=== PATIENT | female | born 1945 | race Caucasian/White ===

== ENCOUNTER 2016-07-12 20:18 | Inpatient (IN) ==
[2016-07-12] MEDS ORDERED: *HR* Morphine 2 MG/ML SYRINGE IVP ONE (22:42)
[2016-07-12] MEDS ORDERED: Nitroglycerin 1 INCH/GM PACKET TP ONE (22:42)
[2016-07-13] MEDS ORDERED: Ondansetron ODT 4 MG TAB.RAPDIS SL PRN (00:34)
[2016-07-13] MEDS ORDERED: Naloxone 0.4 MG/ML INJ IVP PRN (00:34)
[2016-07-13] MEDS ORDERED: *HR* Heparin 5,000 UNIT/ML VIAL IVP PRN ×2 (01:18)
[2016-07-13] MEDS ORDERED: *HR* Heparin 5,000 UNIT/ML VIAL IVP ONE (01:18)
[2016-07-13] MEDS ORDERED: *HR* Morphine 2 MG/ML SYRINGE IVP PRN (01:20)
[2016-07-13] MEDS ORDERED: Acetaminophen 325 MG TABLET PO PRN (01:20)
[2016-07-13] MEDS ORDERED: Nitroglycerin 0.4 MG TAB.SUBL SL PRN (01:20)
[2016-07-13] MEDS ORDERED: Heparin 25,000 UNIT/500 ML D5W 25,000 UNIT/500 ML MLS IVC SCH (01:30)
[2016-07-13 01:33] LABS: ABG Base Excess -0.5 mEq/L (-2.0 to 3.0); ABG HCO3 24.9 mEQ/L (21-27); ABG Oxygen Saturation 99 % (95-98); ABG PCO2 43 mmHg (35-45); ABG PH 7.37 pH Units (7.32-7.45); ABG PO2 141 mmHg (85-104); ABG TCO2 26.2 mEq/L (20-26); Blood Gas FiO2 36 %; Blood Gas Liter Flow 4 L/MIN
[2016-07-13 02:06] LABS: Hemoglobin 12.4 g/dL (11.5-15.4); Mean Corpuscular Hemoglobin 26.1 pg (28.0-33.3); Mean Platelet Volume 10.3 fL (9.4-12.4); Platelet Count 275 K/mcL (140-400); Red Blood Count 4.76 M/mcL (3.82-4.97); Red Cell Distribution Width 14.9 % (11.5-14.5)
[2016-07-13 02:11] LABS: Activated Partial Thrombo Time 25.1 Seconds (26.0-36.0)
[2016-07-13] MEDS ORDERED: Dextrose Gel 15 GM PO PRN ×2 (04:00)
[2016-07-13] MEDS ORDERED: *HR* Dextrose 50 % in Water (Syg) 50 ML SYRINGE IVP PRN (04:00)
[2016-07-13] MEDS ORDERED: D5% in Water 1,000 ML IV PRN ×2 (04:00→12:31)
--- NOTE | 2016-07-13 04:20 | Internal Med History&Physical ---
<Bonita Reaves - Last Filed: 07/13/16 04:49> Date of Encounter: 07/13/16 Time of Encounter: 04:20 Assessment and Plan (1) Chest pain Current visit: No Status: Acute Patient with chest pain and troponins elevated to 0.22. EKG shows normal sinus with no acute ST segment elevation or T wave inversion. Concern for possible NSTEMI. Will trend troponins and start a heparin drip. Patient may require further evaluation from cardiology for possible cath. As it has been 2 years since previous ECHO, will get another. 1. Trend troponins 2. Start heparin drip 3. Check BNP and lipid cascade 4. Cardiac monitoring 5. ECHO 6. Start statin, B-willie, and aspirin 7. Consult to cardiology Qualifiers: Chest pain type: unspecified Qualified Code(s): R07.9 - Chest pain, unspecified (2) COPD (chronic obstructive pulmonary disease) Current visit: No Status: Acute Patient with history of COPD on albuterol and prednisone. She reports shortness of breathe with wheezing on exam. This does not appear to be an acute exacerbation. However, because patient is so sleepy, will get an ABG 1. ABG 2. Continuous O2 monitor 3. Supplemental O2 as needed 4. Continue prednisone 5. Continue albuterol Qualifiers: COPD type: unspecified COPD Qualified Code(s): J44.9 - Chronic obstructive pulmonary disease, unspecified (3) CKD (chronic kidney disease) stage 3, GFR 30-59 ml/min Current visit: No Status: Chronic Patient with GFR of 50. Creatinine at 1.08. Will continue to monitor and avoid nephrotoxic drugs. (4) DM type 2 (diabetes mellitus, type 2) Current visit: No Status: Chronic Patient with T2DM. Glucose was 196 prior to transfer. She takes lispro with meals. As patient is NPO, will do Q6 hour accuchecks with a low sliding scale. 1. Q6 hour accuchecks 2. Low intensity sliding scale. Qualifiers: Diabetes mellitus complication status: with kidney complications Diabetes mellitus complication detail: with chronic kidney disease Diabetes mellitus care home insulin use: without emergency room specialist use Chronic kidney disease stage: stage 3 (moderate) Qualified Code(s): E11.22 - Type 2 diabetes mellitus with diabetic chronic kidney disease; N18.3 - Chronic kidney disease, stage 3 ( moderate) (5) Diastolic heart failure Current visit: No Status: Chronic Patient with history of diastolic heart failure on digoxin and lasix. Will get a new ECHO at this time. 1. Check a digoxin level 2. Check an BNP 3. Continue digoxin and lasix 4. Monitor I/O 5. Daily weights. Qualifiers: Heart failure chronicity: chronic Qualified Code(s): I50.32 - Chronic diastolic (congestive) heart failure (6) DVT prophylaxis Current visit: Yes Status: Acute Patient on heparin drip. Internal Medicine - H&P: HPI Chief complaint: Chest pain with elevated troponin Admitted From: Hospital to Hospital Transfer Plans for Post Hospital Care: Home History of present illness: Ms. Carrasco is a 70 year old female [facility]salio [facility] including arthritis, asthma, COPD, CVA, diabetes, GERD, HLD, and HTN who was transferred from [place] ED with chest pain and elevated troponins. On review of chart, patient has had many cardiac evaluations. She has a baseline minimally elevated troponin at 0.01. Patient presented to [place] with left chest pain radiating down her left arm with associated SOB, cough/congestion and wheezing. Per notes, this is a common complaint for her. However troponin was found to be elevated to 0.22 as such patient was transferred. On my exam, patient was extremely sleepy and had to be aroused multiple times during our conversation, as such history was difficult to obtain. She reports episodes of left sided chest pain radiating to her left arm with associated SOB. She says this has resolved and she currently denies any pain. She does reports some shortness of breath but states that is baseline for her and that she wears O2 at home. Patients is afebrile, HR and RR with normal limit. Blood pressure ranges 105- 115/40-60s. EKG showed normal sinus rhythm with no ST segment elevation or T wave inversion. On exam, patient is very sleepy but when aroused answers questions appropriately. Heart is regular rate and rhythm. Lungs with BL wheezing and decreased air movement. Abdomen is soft, non-tender. No pedal edema noted. On chart review, patient recently wore a halter monitor. She had an ECHO back in 07/2014 that showed an EF of 35-70% with mild AR. She has been seen by Dr. Sahu in the past. Past Med Surg Social Fam HX - Past Medical History Medical history: arthritis, asthma, cardiomyopathy, COPD, CVA, diabetes, GERD, hyperlipidemia, hypertension, myocardial infarction, osteoporosis, peripheral artery disease Psychiatric history: anxiety, depression, panic disorder - Past Surgical History Surgical History: hysterectomy - Social History Smoking Status: Current every day smoker Smokeless Tobacco Status: No Alcohol use: none Drug use: none - Family History Father Hx Family Cardiac Disorders: Yes (Heart attack and stroke) Hx Family Endocrine Disorder: Yes (Diabetes) Mother Family Member Ethnicity: Non- Living Status: Hx Family Cardiac Disorders: Yes Hx Family Respiratory Disorders: Yes Hx Family Cancer: Yes Hx Family GI Disorders: Yes Internal Medicine - H&P: Meds Albuterol Neb [Proventil Neb] 2.5 mg IH Q4HR PRN #30 vial.neb 02/24/16 [Rx] Albuterol Sulfate [Albuterol Inhaler] 2 puff IH Q6HR PRN #1 hfa.aer.ad 02/24/16 [Rx] Aspirin 81 mg PO DAILY 03/12/16 [History] Digoxin [Lanoxin] 0.125 mg PO DAILY 03/12/16 [History] Furosemide [Lasix] 20 mg PO DAILY 03/12/16 [History] Gabapentin [Neurontin] 600 mg PO TID 03/12/16 [History] Insulin LISPRO [HumaLOG] 4 units SQ TIDAC 03/12/16 [History] Magnesium Oxide [Magnesium] 400 mg PO DAILY 03/12/16 [History] Ranolazine [Ranexa] 500 mg PO DAILY #7 tab.er.12h 04/30/16 [Rx] PredniSONE 10 mg PO DAILY #3 tablet 07/05/16 [Rx] Allergies Penicillins Allergy (Verified 04/26/16 17:55) Hives lorazepam [From Ativan] Adverse Reaction (Verified 04/26/16 17:55) Hives ROS unobtainable: due to mental status (Patient was very sleepy and didn't want to answer questions) All Systems PM: A 10-system review of systems was performed and is negative for pertinent findings except as documented above in the HPI. - Constitutional Constitutional: no chills, no fever(s) - EENT Eyes: no change in vision - Cardiovascular Cardiovascular ROS IM: chest pain, dyspnea, lightheadedness, no palpitations, no syncope - Respiratory Respiratory: dyspnea, wheezing - Gastrointestinal Gastrointestinal: no abdominal pain - Constitutional Vitals: Temp Pulse Resp BP Pulse Ox 97.9 F 75 20 113/67 92 L 07/12/16 23:59 07/12/16 23:59 07/12/16 23:59 07/12/16 23:59 07/12/16 23:59 General appearance: Present: A&O X 3 Exam: sleepy but when she is awake answers questions appropriately - Head Head exam: Present: atraumatic, normal inspection, normocephalic - Eye Eye exam: Present: normal appearance - ENT ENT exam: Present: mucous membranes moist, normal exam - Respiratory Respiratory exam: Present: decreased breath sounds, prolonged expiratory phase, wheezes - Cardiovascular Cardiovascular exam: Present: RRR - GI/Abdominal GI/Abdominal exam: Present: soft. Absent: tenderness - Extremities Exam Extremities exam: Present: normal inspection. Absent: pedal edema - Neurological Exam Neurological exam: Present: oriented X3 Internal Med - H&P Results - Labs CBC & Chem 7: 07/13/16 01:30 Labs: Short CBC 07/13/16 Range/Units 01:30 WBC 17.3 H (4.3-11.1) K/mcL Hgb 12.4 (11.5-15.4) g/dL Hct 40.0 (35.3-44.9) % Plt Count 275 (140-400) K/mcL Cardiac Enzymes 07/13/16 Range/Units 01:30 Troponin I 0.01 (0-0.03) ng/mL - ABG Interpretation ABG results: 07/13/16 01:23 ABG pH 7.37 ABG pCO2 43 ABG pO2 141 H ABG HCO3 24.9 ABG Total CO2 26.2 H ABG O2 Saturation 99 H ABG Base Excess -0.5 <Sherwin Marc - Last Filed: 07/13/16 06:06> Date of Encounter: 07/13/16 Internal Medicine - H&P: HPI History of present illness: Ms. Carrasco is a 70 year old female All Systems PM: A 10-system review of systems was performed and is negative for pertinent findings except as documented above in the HPI. - Constitutional Vitals: Temp Pulse Resp BP Pulse Ox 97.9 F 75 20 113/67 92 L 07/12/16 23:59 07/12/16 23:59 07/12/16 23:59 07/12/16 23:59 07/12/16 23:59 Internal Med - H&P Results - Labs CBC & Chem 7: 07/13/16 01:30 Labs: Short CBC 07/13/16 Range/Units 01:30 WBC 17.3 H (4.3-11.1) K/mcL Hgb 12.4 (11.5-15.4) g/dL Hct 40.0 (35.3-44.9) % Plt Count 275 (140-400) K/mcL Cardiac Enzymes 07/13/16 Range/Units 01:30 Troponin I 0.01 (0-0.03) ng/mL - ABG Interpretation ABG results: 07/13/16 01:23 ABG pH 7.37 ABG pCO2 43 ABG pO2 141 H ABG HCO3 24.9 ABG Total CO2 26.2 H ABG O2 Saturation 99 H ABG Base Excess -0.5 - Attending Attestation I examined this patient and my medical decision-making was reviewed with the Resident Physician. I agree with the documented findings, disposition and treatment plan as described except to the extent set forth below. Patient is currently chest pain-free, she appears in no acute distress. Heart is regular S1-S2. EKG was personally reviewed and shows normal sinus rhythm, normal rate, no ST elevation. Patient has a non-ST elevation PR. We will start her on heparin drip per protocol. Consult cardiology.
[2016-07-13] MEDS: Albuterol 2.5 MG/3 ML NEBULIZER IH SCH ×4 (04:40→15:57)
[2016-07-13] MEDS: Insulin LISPRO 300 UNITS/3 ML VIAL SQ SCH ×3 (06:27→17:07)
[2016-07-13] MEDS ORDERED: Aspirin 81 MG TAB.CHEW PO SCH (09:00)
[2016-07-13] MEDS ORDERED: Ranolazine 500 MG TAB.ER.12H PO SCH (09:00)
[2016-07-13] MEDS: Furosemide 20 MG TABLET PO SCH (09:11)
[2016-07-13] MEDS: Gabapentin 300 MG CAPSULE PO SCH ×3 (09:11→20:29)
[2016-07-13] MEDS: *HR* Digoxin 0.125 MG TABLET PO SCH (09:12)
[2016-07-13] MEDS: Aspirin 81 MG TAB.CHEW PO SCH (09:12)
--- NOTE | 2016-07-13 09:46 | Cardiology Consult Note ---
<Asia Mckeon - Last Filed: 07/13/16 09:49> Date of Encounter: 07/13/16 Time of Encounter: 09:00 Assessment and Plan (1) Elevated troponin Current Visit: Yes Status: Acute Troponin 0.22 at [place] ED, now negative; suspect demand ischemia in the setting of COPD exacerbation, WBC 17.3. Euvolemic upon exam, do not suspect volume overload. Chest pain is atypical. Recommend medical management, patient states she does not want any testing, and wants to go home. Continue asa, statin, and betablocker. Echocardiogram ordered. (2) COPD (chronic obstructive pulmonary disease) Current Visit: Yes Status: Chronic mgmt per primary service. Qualifiers: COPD type: unspecified COPD Qualified Code(s): J44.9 - Chronic obstructive pulmonary disease, unspecified Discussion w patient/family: The assessment and plan as outlined above was discussed with the patient and/or family members who expressed understanding and agreement. All questions were answered. Thank you for involving us in the care of your patient. Please call with any questions. History of Present Illness Consult date: 07/13/16 Requesting physician: Sherwin Marc Consult reason: Elevated troponin Chief complaint: Chest pain, shortness of breath History of present illness: Ms. Cararsco is a 70 year old female who presents from [place] ED for COPD Exacerbation, elevated troponin. Upon review, she has multiple admissions to [place] ED for shortness of breath and difficulty in breathing. Last admission to [facility], she left AMA. Please note she is a poor historian, on multiple accounts during exam she stated she was going to leave AMA. Per her report, she has not followed as outpatient with PCP in over 2 years. Has not taken prescribed medications for at least 6+ months. Reports 2+ ppd x50+ years. Per review of ED report--patient comes to the ED nearly every other day, typically with increased stress at home. She reports yesterday she developed worsening shortness of breath and chest pain , she then call the squad. Troponin was 0.22 at [place] ED, and was then sent to [facility] for further evaluation. She was started on a heparin gtt. Past Med Surg Social Fam HX - Past Medical History Source: old records reviewed, nursing notes reviewed Medical history: arthritis, asthma, COPD, CVA, diabetes, GERD, hyperlipidemia, hypertension, myocardial infarction, osteoporosis, peripheral artery disease Psychiatric history: anxiety, depression, panic disorder - Past Surgical History Surgical History: hysterectomy - Social History Smoking Status: Current every day smoker Smokeless Tobacco Status: No Alcohol use: none Drug use: none - Family History Father Hx Family Cardiac Disorders: Yes (Heart attack and stroke) Hx Family Endocrine Disorder: Yes (Diabetes) Mother Family Member Ethnicity: Non- Living Status: Hx Family Cardiac Disorders: Yes Hx Family Respiratory Disorders: Yes Hx Family Cancer: Yes Hx Family GI Disorders: Yes Medications and Allergies Albuterol Neb [Proventil Neb] 2.5 mg IH Q4HR PRN #30 vial.neb 02/24/16 [Rx] Albuterol Sulfate [Albuterol Inhaler] 2 puff IH Q6HR PRN #1 hfa.aer.ad 02/24/16 [Rx] Aspirin 81 mg PO DAILY 03/12/16 [History] Digoxin [Lanoxin] 0.125 mg PO DAILY 03/12/16 [History] Furosemide [Lasix] 20 mg PO DAILY 03/12/16 [History] Gabapentin [Neurontin] 600 mg PO TID 03/12/16 [History] Insulin LISPRO [HumaLOG] 4 units SQ TIDAC 03/12/16 [History] Magnesium Oxide [Magnesium] 400 mg PO DAILY 03/12/16 [History] Ranolazine [Ranexa] 500 mg PO DAILY #7 tab.er.12h 04/30/16 [Rx] PredniSONE 10 mg PO DAILY #3 tablet 07/05/16 [Rx] Allergies lorazepam [From Ativan] Allergy (Verified 07/13/16 09:25) Hives Penicillins Allergy (Verified 04/26/16 17:55) Hives All Systems Review: A 10-system review of systems was performed and is negative for pertinent findings except as documented above in the HPI. - Cardiovascular Cardiovascular: as per HPI Physical Examination Vital Signs, Last 4 Hours Temp Pulse Resp BP Pulse Ox 07/13/16 09:17 96 07/13/16 07:23 98.0 F 82 16 116/69 96 07/13/16 06:08 98 F 69 20 117/67 96 General: Conversant HEENT: Atraumatic, Normocephaly Cardiac: Reg Rate and Rhythm Lungs: Other (Few wheezes ) Neuro: Alert and responsive Abdomen: Soft Skin: No rashes noted on visualized skin Musculoskeletal: No Chest Wall Tenderness Extremities: No Edema, Normal Pulses Results 07/13/16 01:30 Lab Results 07/13/16 07/13/16 07/13/16 01:30 01:30 01:30 WBC 17.3 H Hgb 12.4 Hct 40.0 Plt Count 275 INR APTT Troponin I 0.01 B-Natriuretic Peptide 107 H 07/13/16 01:30 WBC Hgb Hct Plt Count INR 1.0 APTT 25.1 L Troponin I B-Natriuretic Peptide Active Medications Acetaminophen (Tylenol) 325 mg PO Q6HR PRN PRN Reason: Pain Stop: 01/12/17 01:21 Albuterol Sulfate (Proventil Neb) 2.5 mg IH [id number] BRIAN PRN Reason: Protocol Stop: 01/12/17 04:01 Last Admin: 07/13/16 04:40 Dose: Not Given Albuterol Sulfate (Albuterol Inhaler) 2 puff IH [id number] [facility] Stop: 01/12/17 04:01 Last Admin: 07/13/16 04:40 Dose: Not Given Aspirin (Aspirin) 81 mg PO DAILY [facility] Stop: 01/12/17 09:01 Last Admin: 07/13/16 09:12 Dose: 81 mg Dextrose/Water (Dextrose 50% (Syg)) 25 ml IVP AD PRN PRN Reason: Hypoglycemia Stop: 01/12/17 04:01 Digoxin (Lanoxin) 0.125 mg PO DAILY [facility] Stop: 01/12/17 09:01 Last Admin: 07/13/16 09:12 Dose: 0.125 mg Furosemide (Lasix) 20 mg PO DAILY BRIAN Stop: 01/12/17 09:01 Last Admin: 07/13/16 09:11 Dose: 20 mg Gabapentin (Neurontin) 600 mg PO TID [facility] Stop: 01/12/17 09:01 Last Admin: 07/13/16 09:11 Dose: 600 mg Heparin Sodium (Porcine) (Heparin) 3,700 unit 60 unit/kg (3700 unit) IVP Q6HR PRN PRN Reason: SEE COMMENTS Stop: 01/12/17 01:19 Heparin Sodium (Porcine) (Heparin) 1,900 unit 30 unit/kg (1900 unit) IVP Q6H PRN PRN Reason: SEE COMMENTS Stop: 01/12/17 01:19 Heparin Sodium/Dextrose (Heparin 25,000 Unit/500 Ml D5w) 25,000 unit in 500 mls @ 14.928 mls/hr IVC .Q24H BRIAN; 12 UNIT/KG/HR PRN Reason: Protocol Stop: 01/12/17 01:31 Last Admin: 07/13/16 02:31 Dose: 12 unit/kg/hr, 14.928 mls/hr Dextrose (Dextrose 5%) 1,000 mls @ 100 mls/hr IV CONT PRN PRN Reason: HYPOGLYCEMIA Stop: 01/12/17 04:01 Insulin Human Lispro (Humalog) 0 units SQ Q6HR BRIAN PRN Reason: Protocol Stop: 01/12/17 06:01 Last Admin: 07/13/16 06:27 Dose: 2 units Metoprolol Tartrate (Lopressor) 12.5 mg PO BID BRIAN Stop: 01/12/17 09:01 Last Admin: 07/13/16 09:11 Dose: 12.5 mg Morphine Sulfate (Morphine Sulfate) 2 mg IVP Q4HR PRN PRN Reason: Moderate Pain Stop: 01/12/17 01:21 Naloxone HCl (Narcan) 0.4 mg IVP Q2MIN PRN PRN Reason: Opioid Reversal Stop: 01/12/17 00:35 Nitroglycerin (Nitroglycerin) 0.4 mg SL Q5MIN PRN PRN Reason: Chest Pain Stop: 01/12/17 01:21 Ondansetron HCl (Zofran Odt) 4 mg SL Q8HR PRN PRN Reason: Nausea And Vomiting Stop: 01/12/17 00:35 Simvastatin (Zocor) 20 mg PO HS [facility] Stop: 01/12/17 21:01 - Imaging and Cardiology Other Results: 12 hour tele: avg HR=75, no significant event noted. - EKG Interpretation EKG results cardiology: personally reviewed Consult Discharge Plan - Plan Referrals: NO,PCP [Primary Care Provider] - <Shayla Sahu - Last Filed: 07/13/16 11:10> Date of Encounter: 07/13/16 Assessment and Plan Discussion w patient/family: The assessment and plan as outlined above was discussed with the patient and/or family members who expressed understanding and agreement. All questions were answered. Thank you for involving us in the care of your patient. Please call with any questions. History of Present Illness History of present illness: Ms. Carrasco is a 70 year old female All Systems Review: A 10-system review of systems was performed and is negative for pertinent findings except as documented above in the HPI. Physical Examination Vital Signs, Last 4 Hours Temp Pulse Resp BP Pulse Ox 07/13/16 09:17 96 07/13/16 07:23 98.0 F 82 16 116/69 96 Results 07/13/16 09:53 Lab Results 07/13/16 07/13/16 07/13/16 01:30 01:30 01:30 WBC 17.3 H Hgb 12.4 Hct 40.0 Plt Count 275 INR APTT Troponin I 0.01 B-Natriuretic Peptide 107 H 07/13/16 07/13/16 07/13/16 01:30 09:53 09:53 WBC 17.2 H Hgb 13.4 Hct 44.5 Plt Count 251 INR 1.0 APTT 25.1 L 147.0 H* D Troponin I B-Natriuretic Peptide 07/13/16 09:53 WBC Hgb Hct Plt Count INR APTT Troponin I 0.01 B-Natriuretic Peptide - Attending Attestation I examined this patient and my medical decision-making was reviewed with the COURTESY DRIVER/PA/Advanced Practice Nurse/Resident Physician. I agree with the documented findings, disposition and treatment plan. Ms. Carrasco presents with atypical chest pain, reproducible on palpation. Her troponin at [place] was mildly elevated but 2 troponins here have been negative. There are no concerning ECG changes. Her symptoms do not appear consistent with an acute coronary syndrome. She also adamantly declines invasive workup or other cardiac testing. I recommend continuing statin, antiplatelet agent and BB. Heparin can be stopped. Treatment for musculoskeletal pain per primary team. We will sign off. Please call with questions.
[2016-07-13 10:14] LABS: Basophils # 0.3 K/mcL (0.0-0.2); Basophils % 1.5 %; Eosinophils # 0.4 K/mcL (0.0-0.6); Eosinophils % 2.6 %; Hematocrit 44.5 % (35.3-44.9); Hemoglobin 13.4 g/dL (11.5-15.4); Immature Granulocytes % 1.2 % (0-4); Lymphocytes # 3.6 K/mcL (0.6-4.6); Lymphocytes % 20.9 %; Mean Corpuscular HGB Conc 30.1 g/dL (31.6-35.5); Mean Corpuscular Hemoglobin 26.2 pg (28.0-33.3); Mean Corpuscular Volume 86.9 fL (83.0-100.0); Mean Platelet Volume 11.2 fL (9.4-12.4); Monocytes # 1.4 K/mcL (0.0-1.3); Monocytes % 7.9 %; Neutrophils # 11.4 K/mcL (1.6-8.9); Platelet Count 251 K/mcL (140-400); Red Blood Count 5.12 M/mcL (3.82-4.97); Red Cell Distribution Width 15.5 % (11.5-14.5); Segmented Neutrophils % 65.9 %
--- NOTE | 2016-07-13 10:33 | Internal Med Progress Note ---
<Ji Jara - Last Filed: 07/13/16 10:30> Date of Encounter: 07/13/16 Time of Encounter: 10:31 - Assessment and plan (1) Chest pain Current Visit: No Status: Acute Assessment and plan: 07/13/16 Troponin early this morning = 0.01 Seen by cardiology, likely due to demand ischemia in setting of COPD Recommend medical management continue ASA, statin, beta willie Echocardiogram pending 07/13/16 (4:18 am) Patient with chest pain and troponins elevated to 0.22. EKG shows normal sinus with no acute ST segment elevation or T wave inversion. Concern for possible NSTEMI. Will trend troponins and start a heparin drip. Patient may require further evaluation from cardiology for possible cath. As it has been 2 years since previous ECHO, will get another. 1. Trend troponins 2. Start heparin drip 3. Check BNP and lipid cascade 4. Cardiac monitoring 5. ECHO 6. Start statin, B-willie, and aspirin 7. Consult to cardiology Qualifiers: Chest pain type: unspecified Qualified Code(s): R07.9 - Chest pain, unspecified (2) COPD (chronic obstructive pulmonary disease) Current Visit: No Status: Acute Assessment and plan: 07/13/16 Improving clinically Nasal cannula off during exam as morning and O2 sat = 96% Continue supplemental O2 when necessary Continue current medications WBC = 70.3. Patient is on prednisone at home, chart review reveals chronic leukocytosis 07/13/16 (4:18 am) Patient with history of COPD on albuterol and prednisone. She reports shortness of breathe with wheezing on exam. This does not appear to be an acute exacerbation. However, because patient is so sleepy, will get an ABG 1. ABG 2. Continuous O2 monitor 3. Supplemental O2 as needed 4. Continue prednisone 5. Continue albuterol Qualifiers: COPD type: unspecified COPD Qualified Code(s): J44.9 - Chronic obstructive pulmonary disease, unspecified (3) CKD (chronic kidney disease) stage 3, GFR 30-59 ml/min Current Visit: No Status: Chronic Assessment and plan: Serum creatinine last night = 1.08 with EGFR = 50 which are near patient's baseline Continue to monitor and avoid nephrotoxic agents (4) DM type 2 (diabetes mellitus, type 2) Current Visit: No Status: Chronic Assessment and plan: A1c (07/03/16) = 7.4% Continue every 6 hour Accu-Cheks Continue low intensity sliding scale Qualifiers: Diabetes mellitus complication status: with kidney complications Diabetes mellitus complication detail: with chronic kidney disease Diabetes mellitus penitentiary insulin use: without paper counter use Chronic kidney disease stage: stage 3 (moderate) Qualified Code(s): E11.22 - Type 2 diabetes mellitus with diabetic chronic kidney disease; N18.3 - Chronic kidney disease, stage 3 ( moderate) (5) Diastolic heart failure Current Visit: No Status: Chronic Assessment and plan: 07/13/16 Digoxin level ordered late this morning, pending Mild elevation of BNP Echo pending 07/13/16 (4:18 am) Patient with history of diastolic heart failure on digoxin and lasix. Will get a new ECHO at this time. 1. Check a digoxin level 2. Check an BNP 3. Continue digoxin and lasix 4. Monitor I/O 5. Daily weights. Qualifiers: Heart failure chronicity: chronic Qualified Code(s): I50.32 - Chronic diastolic (congestive) heart failure (6) DVT prophylaxis Current Visit: Yes Status: Acute - Subjective Interval history: Ms. Carrasco was seen and examined at bedside this morning. She was drowsy but arousable. He states she states her chest pain has resolved. She is currently having shortness of breath but states this is better than yesterday. She denies abdominal pain or other current complaints - Constitutional Vitals: Temp Pulse Resp BP Pulse Ox 98.0 F 82 16 116/69 96 07/13/16 07:23 07/13/16 07:23 07/13/16 07:23 07/13/16 07:23 07/13/16 09:17 General appearance: Present: A&O X 3 - Head Head exam: Present: atraumatic, normocephalic - Eye Eye exam: Present: PERRL, conjuntiva pink, sclera anicteric Pupils: Present: PERRL - Neck Neck exam general surgery: Present: supple, trachea midline. Absent: lymphadenopathy - Respiratory Respiratory exam: Present: decreased breath sounds, wheezes. Absent: accessory muscle use, rales, respiratory distress - Cardiovascular Cardiovascular exam: Present: RRR, +S1, +S2. Absent: diastolic murmur, gallop, rubs, systolic murmur - GI/Abdominal GI/Abdominal exam: Present: normal bowel sounds, soft, no peritoneal signs. Absent: distended, tenderness - Extremities Exam Extremities exam: Present: warm, radial pulses palpable and symetrical. Absent : calf tenderness, cyanotic, pedal edema - Neurological Exam Neurological exam: Present: oriented X3, no focal deficits. Absent: facial droop, speech deficit - Skin Skin exam: Present: dry, intact Internal Medicine: Result - Labs CBC & Chem 7: 07/13/16 09:53 Labs: Short CBC 07/13/16 07/13/16 Range/Units 01:30 09:53 WBC 17.3 H 17.2 H (4.3-11.1) K/mcL Hgb 12.4 13.4 (11.5-15.4) g/dL Hct 40.0 44.5 (35.3-44.9) % Plt Count 275 251 (140-400) K/mcL Neutrophils # 11.4 H (1.6-8.9) K/mcL Cardiac Enzymes 07/13/16 Range/Units 01:30 Troponin I 0.01 (0-0.03) ng/mL - ABG Interpretation ABG results: ABG ABG pH 7.37 pH Units (7.32-7.45) 07/13/16 01:23 ABG pCO2 43 mmHg (35-45) 07/13/16 01:23 ABG pO2 141 mmHg (85-104) H 07/13/16 01:23 ABG O2 Saturation 99 % (95-98) H 07/13/16 01:23 PT/INR, D-dimer PT 11.0 Seconds (9.4-12.1) 07/13/16 01:30 - VTE Reasons for not Prescribing Prophylaxis: Not indicated-Anticoagulated or INR therapeutic Consult Discharge Plan - Plan Referrals: NO,PCP [Primary Care Provider] - <Kermit Flores H - Last Filed: 07/13/16 12:00> Date of Encounter: 07/13/16 - Constitutional Vitals: Temp Pulse Resp BP Pulse Ox 98.3 F 65 18 102/50 93 L 07/13/16 11:06 07/13/16 11:06 07/13/16 11:06 07/13/16 11:06 07/13/16 11:06 Internal Medicine: Result - Labs CBC & Chem 7: 07/13/16 09:53 Labs: Short CBC 07/13/16 07/13/16 Range/Units 01:30 09:53 WBC 17.3 H 17.2 H (4.3-11.1) K/mcL Hgb 12.4 13.4 (11.5-15.4) g/dL Hct 40.0 44.5 (35.3-44.9) % Plt Count 275 251 (140-400) K/mcL Neutrophils # 11.4 H (1.6-8.9) K/mcL Cardiac Enzymes 07/13/16 07/13/16 Range/Units 01:30 09:53 Troponin I 0.01 0.01 (0-0.03) ng/mL - ABG Interpretation ABG results: ABG ABG pH 7.37 pH Units (7.32-7.45) 07/13/16 01:23 ABG pCO2 43 mmHg (35-45) 07/13/16 01:23 ABG pO2 141 mmHg (85-104) H 07/13/16 01:23 ABG O2 Saturation 99 % (95-98) H 07/13/16 01:23 PT/INR, D-dimer PT 11.0 Seconds (9.4-12.1) 07/13/16 01:30 - Attending Attestation acute copd exacerbation 2ry to acute bronchitis viral vs bacterial start solumedrol and azithromycin duonebs -elevated troponins likely due to demand ischemia check resp viral panel I examined this patient and my medical decision-making was reviewed with the EQUIPMENT MAINTENANCE ENGINEER/PA/Advanced Practice Nurse/Resident Physician. I agree with the documented findings, disposition and treatment plan as described except to the extent set forth below.
[2016-07-13 11:05] LABS: Heparin anti-factor XA UFH 0.54 IU/mL (0.30-0.70)
[2016-07-13] MEDS: methylPREDNISolone 125 MG/2 ML VIAL IV SCH ×2 (12:50→17:07)
[2016-07-13] MEDS: Azithromycin 500 MG in D5% in Water 250 ML IVPB SCH (12:51)
[2016-07-13 12:58] LABS: Alanine Aminotransferase 7 Units/L (0-55); Albumin 3.1 g/dL (3.5-5.0); Alkaline Phosphatase 148 Units/L (38-126); Aspartate Amino Transferase 8 Units/L (5-34); BUN/Creatinine Ratio 10 (6-26); Bilirubin,Direct 0.2 mg/dL (0.0-0.5); Bilirubin,Indirect 0.3 mg/dL (0.0-1.2); Bilirubin,Total 0.5 mg/dL (0.2-1.2); Blood Urea Nitrogen 10 mg/dL (7-20); Calcium 9.3 mg/dL (8.6-10.8); Carbon Dioxide 21 mEq/L (19-29); Chloride 108 mEq/L (98-109); Chol/HDL Ratio 5.4 (0-4.9); Cholesterol 200 mg/dL (< 200); Glucose 150 mg/dL (70-99); HDL Cholesterol 37 mg/dL (40-59); LDL Cholesterol,Calculated 128 mg/dL (0-99); Magnesium 1.9 mg/dL (1.6-2.6); Osmolality,Calculated 288 (280-300); Phosphorous 3.8 mg/dL (2.3-4.7); Potassium 4.6 mEq/L (3.5-4.5); Sodium 138 mEq/L (136-145); Total Protein 6.1 g/dL (6.0-8.3); Triglycerides 176 mg/dL (< 150); eGFR For African Americans > 60 (> 60); eGFR For Non-African Americans 55 (> 60)
[2016-07-13 13:04] LABS: Digoxin 0.3 ng/mL (0.8-2.0)
[2016-07-13 14:16] LABS: Adenovirus Not Detected (Not Detect); Bordetella Pertussis Not Detected (Not Detect); Chlamydophila pneumoniae Not Detected (Not Detect); Coronavirus 229E Not Detected (Not Detect); Coronavirus HKU1 Not Detected (Not Detect); Coronavirus NL63 Not Detected (Not Detect); Coronavirus OC43 Not Detected (Not Detect); Human Metapneumovirus Not Detected (Not Detect); Human Rhinovirus/Enterovirus Not Detected (Not Detect); Influenza A Subtype 2009 H1 Not Detected (Not Detect); Influenza A Untypeable Not Detected (Not Detect); Influenza B Not Detected (Not Detect); Mycoplasma pneumoniae Not Detected (Not Detect); Parainfluenza Virus 1 Not Detected (Not Detect); Parainfluenza Virus 2 Not Detected (Not Detect); Parainfluenza Virus 3 Not Detected (Not Detect); Parainfluenza Virus 4 Not Detected (Not Detect); Respiratory Syncytial Virus Not Detected (Not Detect)
[2016-07-13] MEDS: Ipratropium/Albuterol Neb 3 ML IH SCH ×3 (15:34→23:02)
[2016-07-13] MEDS ORDERED: 0.9 % Sodium Chloride 500 ML IVC ONE (15:54)
[2016-07-13] MEDS ORDERED: 0.9 % Sodium Chloride 500 ML ONE (15:56)
[2016-07-13] MEDS ORDERED: 0.9 % Sodium Chloride 1,000 ML ONE (15:56)
[2016-07-13] MEDS: 0.9 % Sodium Chloride 1,000 ML IVC SCH (16:02)
[2016-07-13] MEDS: *HR* Heparin 5,000 UNIT/ML VIAL SQ SCH (18:24)
[2016-07-13] MEDS ORDERED: Insulin LISPRO 300 UNITS/3 ML VIAL SQ SCH (21:00)
[2016-07-14] MEDS: methylPREDNISolone 125 MG/2 ML VIAL IV SCH ×2 (00:25→08:28)
[2016-07-14] MEDS: 0.9 % Sodium Chloride 1,000 ML IVC SCH ×2 (00:25→08:27)
[2016-07-14] MEDS: Ipratropium/Albuterol Neb 3 ML IH SCH ×2 (03:55→10:47)
[2016-07-14 06:22] LABS: Basophils % 0.1 %; Hematocrit 39.6 % (35.3-44.9); Hemoglobin 12.3 g/dL (11.5-15.4); Immature Granulocytes % 1.5 % (0-4); Lymphocytes % 4.6 %; Mean Corpuscular HGB Conc 31.1 g/dL (31.6-35.5); Mean Corpuscular Hemoglobin 25.9 pg (28.0-33.3); Mean Corpuscular Volume 83.4 fL (83.0-100.0); Mean Platelet Volume 10.6 fL (9.4-12.4); Monocytes # 0.3 K/mcL (0.0-1.3); Monocytes % 1.6 %; Neutrophils # 19.1 K/mcL (1.6-8.9); Platelet Count 306 K/mcL (140-400); Red Blood Count 4.75 M/mcL (3.82-4.97); Segmented Neutrophils % 92.2 %
[2016-07-14 06:40] LABS: Calcium 9.4 mg/dL (8.6-10.8); Magnesium 1.8 mg/dL (1.6-2.6); Phosphorous 3.2 mg/dL (2.3-4.7); Potassium 4.5 mEq/L (3.5-4.5)
[2016-07-14] MEDS ORDERED: Ondansetron 4 MG/2 ML VIAL IVP PRN (06:50)
[2016-07-14] MEDS: Gabapentin 300 MG CAPSULE PO SCH ×2 (08:25→14:27)
[2016-07-14] MEDS: Aspirin 81 MG TAB.CHEW PO SCH (08:26)
[2016-07-14] MEDS: *HR* Digoxin 0.125 MG TABLET PO SCH (08:26)
[2016-07-14] MEDS: *HR* Heparin 5,000 UNIT/ML VIAL SQ SCH (08:27)
[2016-07-14] MEDS: Insulin LISPRO 300 UNITS/3 ML VIAL SQ SCH ×2 (08:27→11:42)
--- NOTE | 2016-07-14 11:17 | Electrocardiograph Report ---
[place] [address] Test Date: 2016-07-12 Pat Name: Meeta Carrasco Department: 112 Room: 2A Gender: F Platform Architect: : 1945 Requested By: Bonita Reaves Order Number: [id number] Reading MD: Dayday Leblanc DO Measurements Intervals [place] Rate: 69 P: 44 PA: 138 QRS: -8 QRSD: 78 T: 87 QT: 398 QTc: 417 Interpretive Statements SINUS RHYTHM MODERATE T-WAVE ABNORMALITY, CONSIDER ANTEROLATERAL ISCHEMIA Electronically Signed On 07-14-2016 11:16:07 EST by Dayday Leblanc DO
--- NOTE | 2016-07-14 11:19 | Electrocardiograph Report ---
[address] [place] [address] Test Date: 2016-07-13 Pat Name: Meeta Carrasco Department: 112 Room: 2A33 Gender: F Paper Cap Machine Operator: : 1945 Requested By: Kermit Flores Order Number: [id number] Reading MD: Dayday Leblanc DO Measurements Intervals [place] Rate: 74 P: 45 AK: 153 QRS: -13 QRSD: 75 T: 85 QT: 374 QTc: 402 Interpretive Statements SINUS RHYTHM MODERATE T-WAVE ABNORMALITY, CONSIDER ANTEROLATERAL ISCHEMIA Electronically Signed On 07-14-2016 11:17:46 EST by Dayday Leblanc DO
[2016-07-14 11:29] VITALS: BP 108/58
[2016-07-14] MEDS: Azithromycin 500 MG in D5% in Water 250 ML IVPB SCH (11:41)
--- NOTE | 2016-07-14 13:13 | Discharge Summary ---
Date of Encounter: 07/14/16 Time of Encounter: 13:13 - Discharge Diagnosis (1) Acute exacerbation of chronic obstructive airways disease Priority: Primary Status: Acute Comments: Chronic Respiratory Failure Secondary to Acute COPD Exacerbation Due To Acute Bronchitis Viral Versus Bacterial (2) Demand ischemia Priority: Secondary Status: Acute Comments: Elevated troponins likely secondary to demand ischemia (3) CKD (chronic kidney disease) stage 3, GFR 30-59 ml/min Priority: Secondary Status: Chronic Comments: CKD3 (4) DM type 2 (diabetes mellitus, type 2) Priority: Secondary Status: Chronic Qualifiers: Diabetes mellitus complication status: with kidney complications Diabetes mellitus complication detail: with chronic kidney disease Diabetes mellitus terminal gauger supervisor insulin use: without alf use Chronic kidney disease stage: stage 3 (moderate) Qualified Code(s): E11.22 - Type 2 diabetes mellitus with diabetic chronic kidney disease; N18.3 - Chronic kidney disease, stage 3 ( moderate) (5) Diastolic heart failure Priority: Secondary Status: Chronic Qualifiers: Heart failure chronicity: chronic Qualified Code(s): I50.32 - Chronic diastolic (congestive) heart failure (6) GERD (gastroesophageal reflux disease) Priority: Secondary Status: Chronic Qualifiers: Esophagitis presence: without esophagitis Qualified Code(s): K21.9 - Gastro -esophageal reflux disease without esophagitis - Discharge Medications Prescriptions: Azithromycin 250 mg PO DAILY #3 tablet Metoprolol [Lopressor] 12.5 mg PO BID 30 Days PredniSONE 10 mg PO DAILY 18 Days Simvastatin [Zocor] 20 mg PO HS #30 tablet Home Medications: Albuterol Neb [Proventil Neb] 2.5 mg IH Q4HR PRN #30 vial.neb 02/24/16 [Rx] Albuterol Sulfate [Albuterol Inhaler] 2 puff IH Q6HR PRN #1 hfa.aer.ad 02/24/16 [Rx] Aspirin 81 mg PO DAILY 03/12/16 [History] Digoxin [Lanoxin] 0.125 mg PO DAILY 03/12/16 [History] Furosemide [Lasix] 20 mg PO DAILY 03/12/16 [History] Gabapentin [Neurontin] 600 mg PO TID 03/12/16 [History] Insulin LISPRO [HumaLOG] 4 units SQ TIDAC 03/12/16 [History] Magnesium Oxide [Magnesium] 400 mg PO DAILY 03/12/16 [History] Ranolazine [Ranexa] 500 mg PO DAILY #7 tab.er.12h 04/30/16 [Rx] Azithromycin 250 mg PO DAILY #3 tablet 07/14/16 [Rx] Metoprolol [Lopressor] 12.5 mg PO BID 30 Days 07/14/16 [Rx] PredniSONE 10 mg PO DAILY 18 Days 07/14/16 [Rx] Simvastatin [Zocor] 20 mg PO HS #30 tablet 07/14/16 [Rx] Allergies/Adverse Reactions: Allergies lorazepam [From Ativan] Allergy (Verified 07/13/16 09:25) Hives Penicillins Allergy (Verified 04/26/16 17:55) Hives Procedures/tests Complete & Pending: Procedures Performed prior 72 hours Category Date Time Status ECG 12 lead ECG [ECG] Routine Y 07/13/16 01:51 Completed EKG [ECG 12 lead ECG] [ECG] Stat Y 07/12/16 23:55 Completed Date of admission: 07/13/16 06:15 Primary care physician: PCP NO Consults: 07/12/16 23:18 Consult to Restaurant Shift Leader [CONS] Routine Reason for SW Consult: Discharge planning 07/13/16 01:19 Consult to Cardiology [CONS] Routine Comment: Consulting Provider: [facility] [place] Reason for Consult: Patient with acutely elevated troponins, CP and SOB. Started on heparin. Call Completed: No - Patient Status Disposition: Home Health Service Condition: Fair Overall status at discharge: patient is progressing back to baseline - Discharge Instructions Follow Up With: NO,PCP [Primary Care Provider] - Additional Instructions: Follow with primary care physician within the next 7 days. Taper prednisone. Quit smoking. Complete antibiotics/azithromycin for 3 more days. - Diet and Activity Activity: increase activity as tolerated, wear oxygen at all times Diet: low fat, low cholesterol Hospital course: Ms. Carrasco is a 70 year old female whith a PMH including arthritis, tobacco , asthma, COPD oxygen dependent using 2-4 L, CVA, diabetes not insulin-dependent , GERD, HLD, and HTN who was transferred from [place] ED with chest pain and elevated troponins. She has a baseline minimally elevated troponin at 0.01. Patient presented to [place] with left chest pain radiating down her left arm with associated SOB, cough/congestion and wheezing. Per notes, this is a common complaint for her. However troponin was found to be elevated to 0.22 as the patient was transferred. She had an ECHO back in 07/2014 that showed an EF of 70% with mild AR. She was seen by Dr. Sahu. The patient was evaluated by the cardiology service, the heparin drip was discontinued. The patient was very somnolent, her breath sounds were extremely tight for which she was started on Solu-Medrol, Rocephin and azithromycin . She feels much better today. Mentions that she feels safe at home, does not feel any danger at home, lives with 2 sons, her nurse mentioned that social media specialist will be contacted due to prior possible danger at home. The patient denies such danger or violence and is requesting to be discharged. Start prednisone and continue azithromycin . Time spent discussing smoking cessation with patient: 3 to 10 minutes - Time Spent with Patient Total time spent providing and/or coordinating discharge services: Greater than 30 minutes (40 minutes) - Constitutional Vitals: Temp Pulse Resp BP Pulse Ox 98.3 F 91 18 108/58 96 07/14/16 11:02 07/14/16 11:28 07/14/16 11:02 07/14/16 11:28 07/14/16 11:02 General appearance: Present: A&O X 3 - Head Head exam: Present: atraumatic, normocephalic - Eye Eye exam: Present: PERRL, conjuntiva pink, sclera anicteric Pupils: Present: PERRL - Neck Neck exam general surgery: Present: supple, trachea midline. Absent: lymphadenopathy - Respiratory Respiratory exam: Present: decreased breath sounds, CTAB. Absent: accessory muscle use, rales, rhonchi, wheezes - Cardiovascular Cardiovascular exam: Present: RRR, +S1, +S2. Absent: diastolic murmur, gallop, rubs, systolic murmur - GI/Abdominal GI/Abdominal exam: Present: normal bowel sounds, soft, no peritoneal signs. Absent: distended, tenderness - Extremities Exam Extremities exam: Present: warm, radial pulses palpable and symetrical. Absent : calf tenderness, cyanotic, pedal edema - Neurological Exam Neurological exam: Present: CN II-XII intact, oriented X3, no focal deficits. Absent: pronater drift, facial droop, speech deficit - Skin Skin exam: Present: dry, intact - VTE Reasons for not Prescribing Prophylaxis: Not indicated-Anticoagulated or INR therapeutic
[2016-07-14] MEDS ORDERED: Azithromycin 250 MG TABLET PO SCH (13:15)
[2016-07-14] MEDS ORDERED: predniSONE 10 MG TABLET PO SCH (13:15)
[2016-07-14] MEDS ORDERED: FLU VACC QS2016-17 36MOS UP/PF 0.5 ML SYRINGE IM ONE (13:38)
--- NOTE | 2016-07-14 13:38 | Physician Discharge Referral ---
Home Health/Hosp Referral Info Transfer to: Home Health Provider in Charge Post Discharge: PCP - Diagnosis (1) Acute exacerbation of chronic obstructive airways disease Status: Acute (2) Demand ischemia Status: Acute (3) CKD (chronic kidney disease) stage 3, GFR 30-59 ml/min Status: Chronic (4) DM type 2 (diabetes mellitus, type 2) Status: Chronic (5) Diastolic heart failure Status: Chronic (6) GERD (gastroesophageal reflux disease) Status: Chronic - Respiratory Orders Oxygen / L per min (2 L) Smoking Cessation: Smoking cessation has been advised. For more information, call the [place] Tobacco Quit Line at 1-185-GZPS-NOW. - Diet/Nutrition Diet/Nutrition Orders: Cardiac - Services Needed Following services are medically necessary services: Home Health Aide Home Care Orders: Follow with primary care physician within the next 7 days. Taper prednisone. Quit smoking. Complete antibiotics/azithromycin for 3 more days. - Transfer Medications Prescriptions: Azithromycin 250 mg PO DAILY #3 tablet Metoprolol [Lopressor] 12.5 mg PO BID 30 Days PredniSONE 10 mg PO DAILY 18 Days Simvastatin [Zocor] 20 mg PO HS #30 tablet Home Medications: Albuterol Neb [Proventil Neb] 2.5 mg IH Q4HR PRN #30 vial.neb 02/24/16 [Rx] Albuterol Sulfate [Albuterol Inhaler] 2 puff IH Q6HR PRN #1 hfa.aer.ad 02/24/16 [Rx] Aspirin 81 mg PO DAILY 03/12/16 [History] Digoxin [Lanoxin] 0.125 mg PO DAILY 03/12/16 [History] Furosemide [Lasix] 20 mg PO DAILY 03/12/16 [History] Gabapentin [Neurontin] 600 mg PO TID 03/12/16 [History] Insulin LISPRO [HumaLOG] 4 units SQ TIDAC 03/12/16 [History] Magnesium Oxide [Magnesium] 400 mg PO DAILY 03/12/16 [History] Ranolazine [Ranexa] 500 mg PO DAILY #7 tab.er.12h 04/30/16 [Rx] Azithromycin 250 mg PO DAILY #3 tablet 07/14/16 [Rx] Metoprolol [Lopressor] 12.5 mg PO BID 30 Days 07/14/16 [Rx] PredniSONE 10 mg PO DAILY 18 Days 07/14/16 [Rx] Simvastatin [Zocor] 20 mg PO HS #30 tablet 07/14/16 [Rx] Allergies/Adverse Reactions: Allergies lorazepam [From Ativan] Allergy (Verified 07/13/16 09:25) Hives Penicillins Allergy (Verified 04/26/16 17:55) Hives Certification: Further, I certify that my clinical findings support that this patient is homebound (i.e. absences from home require considerable and taxing effort and are for medical reasons or muslim services or infrequently or short duration when for other reasons) because: Homebound Reason: Patient requires assistance of a person or device to safely leave home Attestation: My signature below is to certify that this patient is under my care and that I, or nurse practitioner, or a physician's practice assistant working with me, has a face-to -face encounter with this patient.
[2016-07-14] MEDS: Furosemide 20 MG TABLET PO SCH (14:02)
== END 2016-07-14 14:44 | disposition home or self-care (01) | DRG 140 ==
LOC: 2ANU → SUATTDRO 07-13 06:15
PROVIDERS: ADMIT Family Medicine; ATTEND Internal Medicine

== ENCOUNTER 2019-05-02 14:27 | Inpatient (IN) ==
[2019-05-02] MEDS ORDERED: Ipratropium/Albuterol Neb 3 ML IH ONE ×2 (14:29→15:54)
[2019-05-02] MEDS ORDERED: Haloperidol Lactate 5 MG/ML VIAL IM ONE (14:38)
[2019-05-02 16:10] LABS: Basophils # 0.2 K/mcL (0.0-0.2); Basophils % 1.1 %; Eosinophils # 0.5 K/mcL (0.0-0.6); Eosinophils % 2.7 %; Hemoglobin 11.3 g/dL (11.5-15.4); Immature Granulocytes % 0.6 % (0-4); Lymphocytes # 4.5 K/mcL (0.6-4.6); Lymphocytes % 25.6 %; Mean Corpuscular HGB Conc 30.5 g/dL (31.6-35.5); Mean Corpuscular Hemoglobin 27.3 pg (28.0-33.3); Mean Corpuscular Volume 89.4 fL (83.0-100.0); Monocytes # 1.3 K/mcL (0.0-1.3); Monocytes % 7.2 %; Neutrophils # 11.1 K/mcL (1.6-8.9); Platelet Count 375 K/mcL (140-400); Red Blood Count 4.14 M/mcL (3.82-4.97); Red Cell Distribution Width 15.6 % (11.5-14.5); Segmented Neutrophils % 62.8 %; White Blood Count 17.6 K/mcL (4.3-11.1)
[2019-05-02 16:27] LABS: Bilirubin,Urine Negative (Negative); Blood,Urine Negative (Negative); Clarity,Urine Cloudy (Clear); Color,Urine Yellow (Yellow); Glucose,Urine (UA) Normal (Normal); Ketones,Urine Negative (Negative); Leukocyte Esterase,Urine Large (Negative); Nitrite,Urine Negative (Negative); Protein,Urine Negative (Neg-Trace); Urobilinogen,Urine Normal (Normal)
[2019-05-02 16:30] LABS: Bacteria,Urine None Seen per hpf (None-Few); RBC,Urine 0-3 per hpf (0-3); Squamous Epithelial Cell,Urine Many per lpf (None-Few); WBC,Urine 50-100 per hpf (0-3)
[2019-05-02] MEDS ORDERED: *HR* FentaNYL (PF) 100 MCG/2 ML VIAL IVP ONE (16:34)
[2019-05-02 16:37] LABS: BUN/Creatinine Ratio 12 (6-26); Blood Urea Nitrogen 13 mg/dL (8-23); Calcium 9.6 mg/dL (8.6-10.3); Carbon Dioxide 21 mEq/L (23-29); Chloride 95 mEq/L (98-107); Digoxin 0.9 ng/mL (0.8-2.0); Glucose 113 mg/dL (70-105); Osmolality,Calculated 265 (280-300); Potassium 7.7 mEq/L (3.5-5.1); Sodium 127 mEq/L (136-145); Troponin I < 0.03 ng/mL (< 0.04); Valproate 25 mcg/mL (50-100); eGFR For African Americans 58 (> 60); eGFR For Non-African Americans 48 (> 60)
[2019-05-02 16:38] LABS: Transitional Epi Cells,Urine Few per hpf (None-Few)
[2019-05-02] MEDS ORDERED: Calcium Gluconate 1gm/50mL 1 GM/50 ML BAG IVPB PRN (16:38)
[2019-05-02] MEDS ORDERED: *HR* Dextrose 50 % in Water (Syg) 50 ML SYRINGE IVP ONE (16:38)
[2019-05-02] MEDS ORDERED: Insulin Human Regular 10 UNIT in 0.9 % Sodium Chloride 10 ML IV ONE (16:38)
[2019-05-02] MEDS ORDERED: Ondansetron 4 MG/2 ML VIAL IVP PRN (16:59)
[2019-05-02] MEDS ORDERED: Acetaminophen 325 MG TABLET PO PRN (16:59)
[2019-05-02] MEDS ORDERED: Naloxone 0.4 MG/ML INJ IVP PRN (16:59)
[2019-05-02] MEDS ORDERED: *HR* Dextrose 50 % in Water (Syg) 50 ML SYRINGE IVP PRN (17:17)
[2019-05-02] MEDS ORDERED: Dextrose Gel 15 GM/37.5 ML TUBE PO PRN ×2 (17:17)
[2019-05-02] MEDS ORDERED: D5% in Water 1,000 ML IVC PRN (17:17)
[2019-05-02 17:30] LABS: Calcium 9.5 mg/dL (8.6-10.3); Potassium 5.6 mEq/L (3.5-5.1)
[2019-05-02] MEDS ORDERED: Furosemide 20 MG/2 ML VIAL IVP ONE (17:51)
[2019-05-02] MEDS: MethylPREDNISolone 40 MG/ML VIAL IVP SCH (18:56)
[2019-05-02] MEDS: *HR* Heparin 5,000 UNIT/ML VIAL SQ SCH (18:56)
[2019-05-02] MEDS: *HR* HYDROcodone/Acet 5/325 mg TABLET PO PRN (19:02)
[2019-05-02] MEDS: Budesonide/Formoterol 160/4.5 1 PUFF INH IH SCH (20:18)
[2019-05-02] MEDS: Ipratropium/Albuterol Neb 3 ML IH SCH (20:18)
[2019-05-02] MEDS: Gabapentin 100 MG CAPSULE PO SCH (20:28)
[2019-05-02] MEDS: Mirtazapine 15 MG TABLET PO SCH (20:28)
[2019-05-03] MEDS: Ipratropium/Albuterol Neb 3 ML IH SCH ×7 (00:37→23:41)
[2019-05-03] MEDS ORDERED: Haloperidol Lactate 5 MG/ML VIAL IVP ONE ×3 (02:41→22:23)
[2019-05-03] MEDS ORDERED: *HR* Promethazine 25 MG/ML VIAL IVP ONE ×2 (02:42→20:23)
[2019-05-03] MEDS: *HR* Heparin 5,000 UNIT/ML VIAL SQ SCH ×2 (05:05→18:53)
[2019-05-03] MEDS: Budesonide/Formoterol 160/4.5 1 PUFF INH IH SCH ×2 (07:34→19:27)
[2019-05-03] MEDS: Aspirin Enteric Coated 81 MG Tablet PO SCH (07:47)
[2019-05-03] MEDS: MethylPREDNISolone 40 MG/ML VIAL IVP SCH (07:47)
[2019-05-03] MEDS: Bumetanide 1 MG TABLET PO SCH (07:47)
[2019-05-03] MEDS: Divalproex (12 HR) 250 MG TABLET PO SCH (07:47)
[2019-05-03] MEDS: Gabapentin 100 MG CAPSULE PO SCH ×3 (07:47→20:25)
[2019-05-03] MEDS: Isosorbide MONOnitrate (24 HR) 30 MG TAB.ER.24H PO SCH (07:47)
[2019-05-03] MEDS: Insulin LISPRO 300 UNITS/3 ML VIAL SQ SCH ×3 (07:58→18:15)
[2019-05-03] MEDS: *HR* HYDROcodone/Acet 5/325 mg TABLET PO PRN ×2 (08:08→16:23)
[2019-05-03] MEDS ORDERED: *HR* Digoxin 0.125 MG TABLET PO SCH (09:00)
[2019-05-03 15:18] LABS: Basophils % 0.2 %; Hemoglobin 11.1 g/dL (11.5-15.4); Immature Granulocytes % 0.9 % (0-4); Lymphocytes # 1.4 K/mcL (0.6-4.6); Lymphocytes % 9.9 %; Mean Corpuscular HGB Conc 31.7 g/dL (31.6-35.5); Mean Corpuscular Hemoglobin 26.8 pg (28.0-33.3); Mean Corpuscular Volume 84.5 fL (83.0-100.0); Mean Platelet Volume 10.5 fL (9.4-12.4); Monocytes # 0.5 K/mcL (0.0-1.3); Monocytes % 3.3 %; Platelet Count 434 K/mcL (140-400); Red Blood Count 4.14 M/mcL (3.82-4.97); Red Cell Distribution Width 15.3 % (11.5-14.5); Segmented Neutrophils % 85.7 %
[2019-05-03 15:51] LABS: Calcium 9.5 mg/dL (8.6-10.3); Chol/HDL Ratio 5.8 (0-4.9); Magnesium 1.9 mg/dL (1.6-2.6); Potassium 5.7 mEq/L (3.5-5.1)
[2019-05-03] MEDS: Mirtazapine 15 MG TABLET PO SCH (20:25)
[2019-05-04] MEDS: *HR* HYDROcodone/Acet 5/325 mg TABLET PO PRN ×4 (01:44→23:44)
[2019-05-04] MEDS: *HR* Heparin 5,000 UNIT/ML VIAL SQ SCH ×2 (05:16→17:37)
[2019-05-04] MEDS: Divalproex (12 HR) 250 MG TABLET PO SCH (08:09)
[2019-05-04] MEDS: Budesonide/Formoterol 160/4.5 1 PUFF INH IH SCH ×2 (08:16→22:23)
[2019-05-04] MEDS: Insulin LISPRO 300 UNITS/3 ML VIAL SQ SCH ×3 (08:25→17:38)
[2019-05-04] MEDS: Isosorbide MONOnitrate (24 HR) 30 MG TAB.ER.24H PO SCH (09:01)
[2019-05-04] MEDS: Bumetanide 1 MG TABLET PO SCH (09:02)
[2019-05-04] MEDS: Gabapentin 100 MG CAPSULE PO SCH ×4 (09:02→20:01)
[2019-05-04] MEDS: Aspirin Enteric Coated 81 MG Tablet PO SCH (09:02)
[2019-05-04] MEDS: predniSONE 20 MG TABLET PO SCH (09:03)
[2019-05-04 15:36] LABS: Hematocrit 34.9 % (35.3-44.9); Hemoglobin 11.3 g/dL (11.5-15.4); Mean Corpuscular HGB Conc 32.4 g/dL (31.6-35.5); Mean Corpuscular Hemoglobin 27.1 pg (28.0-33.3); Mean Corpuscular Volume 83.7 fL (83.0-100.0); Mean Platelet Volume 10.2 fL (9.4-12.4); Platelet Count 464 K/mcL (140-400); Red Blood Count 4.17 M/mcL (3.82-4.97); Red Cell Distribution Width 15.5 % (11.5-14.5); White Blood Count 17.8 K/mcL (4.3-11.1)
[2019-05-04 15:55] LABS: Calcium 10.1 mg/dL (8.6-10.3)
[2019-05-04] MEDS: Ipratropium/Albuterol Neb 3 ML IH PRN (17:32)
[2019-05-04] MEDS: Mirtazapine 15 MG TABLET PO SCH (19:58)
[2019-05-04 22:56] LABS: Sodium, Urine 40.9 mEq/L
[2019-05-05] MEDS: *HR* Heparin 5,000 UNIT/ML VIAL SQ SCH ×2 (05:47→16:44)
[2019-05-05] MEDS: *HR* HYDROcodone/Acet 5/325 mg TABLET PO PRN (06:52)
[2019-05-05] MEDS: Ipratropium/Albuterol Neb 3 ML IH PRN (07:38)
[2019-05-05] MEDS: Budesonide/Formoterol 160/4.5 1 PUFF INH IH SCH ×2 (07:38→22:03)
[2019-05-05] MEDS: Gabapentin 100 MG CAPSULE PO SCH ×3 (08:53→20:41)
[2019-05-05] MEDS: Divalproex (12 HR) 250 MG TABLET PO SCH (08:53)
[2019-05-05] MEDS: Aspirin Enteric Coated 81 MG Tablet PO SCH (08:54)
[2019-05-05] MEDS: Isosorbide MONOnitrate (24 HR) 30 MG TAB.ER.24H PO SCH (08:54)
[2019-05-05] MEDS: predniSONE 20 MG TABLET PO SCH (08:54)
[2019-05-05] MEDS: Insulin LISPRO 300 UNITS/3 ML VIAL SQ SCH ×3 (09:15→18:37)
[2019-05-05 15:31] LABS: Hematocrit 37.3 % (35.3-44.9); Hemoglobin 12.3 g/dL (11.5-15.4); Mean Corpuscular Hemoglobin 27.2 pg (28.0-33.3); Mean Corpuscular Volume 82.5 fL (83.0-100.0); Mean Platelet Volume 11.9 fL (9.4-12.4); Platelet Count 412 K/mcL (140-400); Red Blood Count 4.52 M/mcL (3.82-4.97); Red Cell Distribution Width 15.9 % (11.5-14.5); White Blood Count 18.8 K/mcL (4.3-11.1)
[2019-05-05 15:42] LABS: Calcium 10.1 mg/dL (8.6-10.3); Potassium 5.4 mEq/L (3.5-5.1)
[2019-05-05] MEDS: Nicotine 14 MG PATCH.TD24 TD SCH (16:44)
[2019-05-05] MEDS ORDERED: 0.9 % Sodium Chloride 500 ML IVC ONE (17:08)
[2019-05-05] MEDS: Mirtazapine 15 MG TABLET PO SCH (20:41)
[2019-05-05] MEDS ORDERED: Haloperidol Lactate 5 MG/ML VIAL IVP ONE (21:15)
[2019-05-05] MEDS ORDERED: *HR* Promethazine 25 MG/ML VIAL IVP ONE (21:15)
[2019-05-05] MEDS ORDERED: Haloperidol Lactate 5 MG/ML VIAL IM ONE (21:57)
[2019-05-05] MEDS ORDERED: *HR* Promethazine 25 MG/ML VIAL IM ONE (21:58)
[2019-05-06 05:57] LABS: Hematocrit 38.2 % (35.3-44.9); Mean Corpuscular HGB Conc 31.4 g/dL (31.6-35.5); Mean Corpuscular Hemoglobin 26.9 pg (28.0-33.3); Mean Corpuscular Volume 85.7 fL (83.0-100.0); Mean Platelet Volume 11.5 fL (9.4-12.4); Platelet Count 499 K/mcL (140-400); Red Blood Count 4.46 M/mcL (3.82-4.97); Red Cell Distribution Width 16.2 % (11.5-14.5); White Blood Count 21.9 K/mcL (4.3-11.1)
[2019-05-06 06:07] LABS: Calcium 10.2 mg/dL (8.6-10.3); Potassium 5.1 mEq/L (3.5-5.1)
[2019-05-06] MEDS: *HR* Heparin 5,000 UNIT/ML VIAL SQ SCH ×2 (07:19→16:49)
[2019-05-06] MEDS: Budesonide/Formoterol 160/4.5 1 PUFF INH IH SCH ×2 (07:32→21:55)
[2019-05-06] MEDS ORDERED: 0.9 % Sodium Chloride 1,000 ML IVC SCH (08:15)
[2019-05-06] MEDS: Nicotine 14 MG PATCH.TD24 TD SCH (09:28)
[2019-05-06] MEDS: Gabapentin 100 MG CAPSULE PO SCH ×3 (09:28→20:21)
[2019-05-06] MEDS: Isosorbide MONOnitrate (24 HR) 30 MG TAB.ER.24H PO SCH (09:28)
[2019-05-06] MEDS: Aspirin Enteric Coated 81 MG Tablet PO SCH (09:28)
[2019-05-06] MEDS: Divalproex Sodium 125 MG CAPSULE PO SCH ×2 (09:31→13:05)
[2019-05-06] MEDS: Insulin LISPRO 300 UNITS/3 ML VIAL SQ SCH ×3 (09:34→16:49)
[2019-05-06] MEDS: Ipratropium/Albuterol Neb 3 ML IH PRN (11:07)
[2019-05-06] MEDS: 0.9 % Sodium Chloride 1,000 ML IVC SCH (16:49)
[2019-05-06] MEDS: *HR* Metoprolol 5 MG/5 ML VIAL IVP PRN (17:31)
[2019-05-06] MEDS: *HR* HYDROcodone/Acet 5/325 mg TABLET PO PRN (17:39)
[2019-05-06 19:04] LABS: Bilirubin,Urine Negative (Negative); Blood,Urine Negative (Negative); Clarity,Urine Cloudy (Clear); Color,Urine Yellow (Yellow); Glucose,Urine (UA) Normal (Normal); Ketones,Urine Negative (Negative); Leukocyte Esterase,Urine Large (Negative); Nitrite,Urine Negative (Negative); Protein,Urine 30 mg/dL (Neg-Trace); Urobilinogen,Urine Normal (Normal)
[2019-05-06 19:22] LABS: Bacteria,Urine Moderate per hpf (None-Few); Hyaline Casts,Urine None Seen per lpf (None-Few); Squamous Epithelial Cell,Urine Many per lpf (None-Few); WBC,Urine 50-100 per hpf (0-3)
[2019-05-06] MEDS: Divalproex (12 HR) 250 MG TABLET PO SCH (20:21)
[2019-05-06] MEDS: Mirtazapine 15 MG TABLET PO SCH (20:21)
[2019-05-07 03:40] LABS: Basophils # 0.2 K/mcL (0.0-0.2); Basophils % 1.2 %; Eosinophils # 0.2 K/mcL (0.0-0.6); Hematocrit 34.1 % (35.3-44.9); Lymphocytes # 5.6 K/mcL (0.6-4.6); Lymphocytes % 33.2 %; Mean Corpuscular HGB Conc 30.8 g/dL (31.6-35.5); Mean Corpuscular Volume 87.7 fL (83.0-100.0); Mean Platelet Volume 10.8 fL (9.4-12.4); Monocytes # 1.7 K/mcL (0.0-1.3); Monocytes % 9.9 %; Platelet Count 481 K/mcL (140-400); Red Blood Count 3.89 M/mcL (3.82-4.97); Red Cell Distribution Width 16.3 % (11.5-14.5); Segmented Neutrophils % 53.7 %; White Blood Count 16.8 K/mcL (4.3-11.1)
[2019-05-07 03:44] LABS: Hemoglobin 10.5 g/dL (11.5-15.4)
[2019-05-07 04:03] LABS: Calcium 9.1 mg/dL (8.6-10.3); Potassium 4.5 mEq/L (3.5-5.1)
[2019-05-07] MEDS: 0.9 % Sodium Chloride 1,000 ML IVC SCH ×2 (04:41→17:02)
[2019-05-07] MEDS: *HR* HYDROcodone/Acet 5/325 mg TABLET PO PRN (05:17)
[2019-05-07] MEDS: *HR* Heparin 5,000 UNIT/ML VIAL SQ SCH ×2 (06:11→17:03)
[2019-05-07] MEDS: Budesonide/Formoterol 160/4.5 1 PUFF INH IH SCH ×2 (07:37→20:39)
[2019-05-07] MEDS: Insulin LISPRO 300 UNITS/3 ML VIAL SQ SCH ×3 (08:16→16:01)
[2019-05-07] MEDS: Aspirin Enteric Coated 81 MG Tablet PO SCH (08:16)
[2019-05-07] MEDS: Divalproex Sodium 125 MG CAPSULE PO SCH ×2 (08:16→10:45)
[2019-05-07] MEDS: Nicotine 14 MG PATCH.TD24 TD SCH (08:17)
[2019-05-07] MEDS: Isosorbide MONOnitrate (24 HR) 30 MG TAB.ER.24H PO SCH (08:17)
[2019-05-07] MEDS: Gabapentin 100 MG CAPSULE PO SCH ×3 (08:17→21:22)
[2019-05-07] MEDS: *HR* Metoprolol 5 MG/5 ML VIAL IVP PRN ×2 (12:04→14:47)
[2019-05-07] MEDS ORDERED: ALPRAZolam 0.25 MG TABLET PO SCH (15:45)
[2019-05-07] MEDS: ALPRAZOLAM PO SCH ×2 (15:54→21:22)
[2019-05-07] MEDS: Divalproex (12 HR) 250 MG TABLET PO SCH (21:22)
[2019-05-07] MEDS: Mirtazapine 15 MG TABLET PO SCH (21:22)
[2019-05-08] MEDS: *HR* Heparin 5,000 UNIT/ML VIAL SQ SCH ×2 (05:25→17:30)
[2019-05-08 06:11] LABS: Basophils # 0.2 K/mcL (0.0-0.2); Basophils % 1.1 %; Eosinophils # 0.7 K/mcL (0.0-0.6); Eosinophils % 4.3 %; Hematocrit 39.2 % (35.3-44.9); Immature Granulocytes % 1.2 % (0-4); Lymphocytes # 5.6 K/mcL (0.6-4.6); Lymphocytes % 33.3 %; Mean Corpuscular HGB Conc 30.6 g/dL (31.6-35.5); Mean Corpuscular Hemoglobin 27.1 pg (28.0-33.3); Mean Corpuscular Volume 88.5 fL (83.0-100.0); Mean Platelet Volume 10.3 fL (9.4-12.4); Monocytes # 1.7 K/mcL (0.0-1.3); Monocytes % 9.9 %; Neutrophils # 8.5 K/mcL (1.6-8.9); Platelet Count 482 K/mcL (140-400); Red Blood Count 4.43 M/mcL (3.82-4.97); Red Cell Distribution Width 16.6 % (11.5-14.5); Segmented Neutrophils % 50.2 %; White Blood Count 16.8 K/mcL (4.3-11.1)
[2019-05-08 06:33] LABS: Potassium 4.4 mEq/L (3.5-5.1)
[2019-05-08] MEDS: Budesonide/Formoterol 160/4.5 1 PUFF INH IH SCH ×2 (07:55→21:34)
[2019-05-08] MEDS: 0.9 % Sodium Chloride 1,000 ML IVC SCH (08:00)
[2019-05-08] MEDS: Insulin LISPRO 300 UNITS/3 ML VIAL SQ SCH ×3 (09:02→17:25)
[2019-05-08] MEDS: Gabapentin 100 MG CAPSULE PO SCH ×3 (10:16→20:12)
[2019-05-08] MEDS: Isosorbide MONOnitrate (24 HR) 30 MG TAB.ER.24H PO SCH (10:16)
[2019-05-08] MEDS: Aspirin Enteric Coated 81 MG Tablet PO SCH (10:16)
[2019-05-08] MEDS: ALPRAZOLAM PO SCH ×3 (10:16→20:13)
[2019-05-08] MEDS: Nicotine 14 MG PATCH.TD24 TD SCH (10:17)
[2019-05-08] MEDS: *HR* Metoprolol 5 MG/5 ML VIAL IVP PRN (10:19)
[2019-05-08] MEDS: Divalproex Sodium 125 MG CAPSULE PO SCH ×2 (10:33→13:28)
[2019-05-08] MEDS: *HR* HYDROcodone/Acet 5/325 mg TABLET PO PRN (13:28)
[2019-05-08] MEDS: Divalproex (12 HR) 250 MG TABLET PO SCH (20:11)
[2019-05-08] MEDS: Mirtazapine 15 MG TABLET PO SCH (20:12)
[2019-05-09] MEDS: 0.9 % Sodium Chloride 1,000 ML IVC SCH (02:01)
[2019-05-09 04:36] LABS: Calcium 8.8 mg/dL (8.6-10.3)
[2019-05-09] MEDS: *HR* Heparin 5,000 UNIT/ML VIAL SQ SCH ×2 (05:46→17:46)
[2019-05-09] MEDS: Ipratropium/Albuterol Neb 3 ML IH PRN ×2 (06:38→15:47)
[2019-05-09] MEDS: Insulin LISPRO 300 UNITS/3 ML VIAL SQ SCH ×3 (08:54→17:46)
[2019-05-09] MEDS: ALPRAZOLAM PO SCH ×3 (09:02→19:45)
[2019-05-09] MEDS: Isosorbide MONOnitrate (24 HR) 30 MG TAB.ER.24H PO SCH (09:02)
[2019-05-09] MEDS: Aspirin Enteric Coated 81 MG Tablet PO SCH (09:02)
[2019-05-09] MEDS: Gabapentin 100 MG CAPSULE PO SCH ×3 (09:03→19:45)
[2019-05-09] MEDS: Divalproex Sodium 125 MG CAPSULE PO SCH ×2 (09:05→12:34)
[2019-05-09] MEDS: Nicotine 14 MG PATCH.TD24 TD SCH (09:13)
[2019-05-09] MEDS: Budesonide/Formoterol 160/4.5 1 PUFF INH IH SCH ×2 (09:47→19:32)
[2019-05-09] MEDS: *HR* HYDROcodone/Acet 5/325 mg TABLET PO PRN (16:26)
[2019-05-09] MEDS: Divalproex (12 HR) 250 MG TABLET PO SCH (19:45)
[2019-05-09] MEDS: Mirtazapine 15 MG TABLET PO SCH (19:45)
[2019-05-09] MEDS: Ondansetron 4 MG/2 ML VIAL IVP PRN (21:11)
[2019-05-10] MEDS: 0.9 % Sodium Chloride 1,000 ML IVC SCH (00:10)
[2019-05-10] MEDS: *HR* Heparin 5,000 UNIT/ML VIAL SQ SCH ×2 (06:06→18:02)
[2019-05-10 06:36] LABS: Basophils # 0.2 K/mcL (0.0-0.2); Basophils % 0.8 %; Hematocrit 31.1 % (35.3-44.9); Immature Granulocytes % 1.3 % (0-4); Lymphocytes # 4.3 K/mcL (0.6-4.6); Lymphocytes % 21.6 %; Mean Corpuscular HGB Conc 31.2 g/dL (31.6-35.5); Mean Corpuscular Hemoglobin 27.9 pg (28.0-33.3); Mean Corpuscular Volume 89.4 fL (83.0-100.0); Mean Platelet Volume 10.1 fL (9.4-12.4); Monocytes # 2.2 K/mcL (0.0-1.3); Monocytes % 11.2 %; Platelet Count 433 K/mcL (140-400); Red Blood Count 3.48 M/mcL (3.82-4.97); Segmented Neutrophils % 60.1 %; White Blood Count 19.9 K/mcL (4.3-11.1)
[2019-05-10 06:37] LABS: Hemoglobin 9.7 g/dL (11.5-15.4)
[2019-05-10] MEDS ORDERED: Aminoglycoside Consult 1 EACH MC ONE (07:21)
[2019-05-10] MEDS: Budesonide/Formoterol 160/4.5 1 PUFF INH IH SCH ×2 (08:14→20:04)
[2019-05-10] MEDS: Divalproex Sodium 125 MG CAPSULE PO SCH ×2 (08:59→12:16)
[2019-05-10] MEDS: Aspirin Enteric Coated 81 MG Tablet PO SCH (08:59)
[2019-05-10] MEDS: ALPRAZOLAM PO SCH ×3 (08:59→20:32)
[2019-05-10] MEDS: Nicotine 14 MG PATCH.TD24 TD SCH (09:00)
[2019-05-10] MEDS: Insulin LISPRO 300 UNITS/3 ML VIAL SQ SCH ×3 (09:00→17:37)
[2019-05-10] MEDS: Ondansetron 4 MG/2 ML VIAL IVP PRN (09:00)
[2019-05-10] MEDS: Gabapentin 100 MG CAPSULE PO SCH ×3 (09:00→20:32)
[2019-05-10] MEDS: *HR* HYDROcodone/Acet 5/325 mg TABLET PO PRN (09:51)
[2019-05-10] MEDS: *HR* Metoprolol 5 MG/5 ML VIAL IVP PRN (10:13)
[2019-05-10] MEDS ORDERED: Haloperidol Lactate 5 MG/ML VIAL IVP ONE (12:03)
[2019-05-10 13:48] LABS: Potassium 5.8 mEq/L (3.5-5.1)
[2019-05-10] MEDS: Divalproex (12 HR) 250 MG TABLET PO SCH (20:32)
[2019-05-10] MEDS: Mirtazapine 15 MG TABLET PO SCH (20:35)
[2019-05-10] MEDS ORDERED: 0.9 % Sodium Chloride 250 ML IVC ONE (21:15)
[2019-05-10] MEDS ORDERED: 0.9 % Sodium Chloride 250 ML ONE (21:35)
[2019-05-10 22:41] LABS: Calcium 8.9 mg/dL (8.6-10.3)
[2019-05-10 22:50] LABS: Troponin I 0.05 ng/mL (< 0.04)
[2019-05-11] MEDS: Ipratropium/Albuterol Neb 3 ML IH PRN (00:04)
[2019-05-11 02:10] LABS: Hematocrit 30.7 % (35.3-44.9); Hemoglobin 9.4 g/dL (11.5-15.4); Mean Corpuscular HGB Conc 30.6 g/dL (31.6-35.5); Mean Corpuscular Hemoglobin 27.6 pg (28.0-33.3); Mean Corpuscular Volume 90.3 fL (83.0-100.0); Mean Platelet Volume 11.5 fL (9.4-12.4); Platelet Count 288 K/mcL (140-400); Red Cell Distribution Width 17.1 % (11.5-14.5); White Blood Count 19.7 K/mcL (4.3-11.1)
[2019-05-11 02:30] LABS: Calcium 8.7 mg/dL (8.6-10.3); Potassium 5.1 mEq/L (3.5-5.1)
[2019-05-11] MEDS: *HR* Heparin 5,000 UNIT/ML VIAL SQ SCH ×2 (05:44→18:34)
[2019-05-11] MEDS: Budesonide/Formoterol 160/4.5 1 PUFF INH IH SCH ×2 (07:34→20:35)
[2019-05-11] MEDS ORDERED: E-Z-PAQUE (BARIUM SULF) SUSP 1 BOTTLE PO ONE (11:08)
[2019-05-11] MEDS ORDERED: E-Z-HD (BARIUM SULF) SUSPENSION PO ONE (11:08)
[2019-05-11] MEDS: Insulin LISPRO 300 UNITS/3 ML VIAL SQ SCH ×3 (11:49→18:35)
[2019-05-11] MEDS: Gabapentin 100 MG CAPSULE PO SCH ×2 (12:06→16:00)
[2019-05-11] MEDS: Aspirin Enteric Coated 81 MG Tablet PO SCH (12:06)
[2019-05-11] MEDS: ALPRAZOLAM PO SCH ×2 (12:06→15:59)
[2019-05-11] MEDS: Nicotine 14 MG PATCH.TD24 TD SCH (12:06)
[2019-05-11] MEDS: Divalproex Sodium 125 MG CAPSULE PO SCH ×2 (12:11→16:09)
[2019-05-11] MEDS: *HR* HYDROcodone/Acet 5/325 mg TABLET PO PRN (15:59)
[2019-05-11] MEDS: *HR* Digoxin 0.125 MG TABLET PO SCH (16:09)
[2019-05-12] MEDS: Gabapentin 100 MG CAPSULE PO SCH ×4 (00:22→20:24)
[2019-05-12] MEDS: ALPRAZOLAM PO SCH ×4 (00:23→20:24)
[2019-05-12] MEDS: Mirtazapine 15 MG TABLET PO SCH ×2 (00:23→20:24)
[2019-05-12] MEDS: Divalproex (12 HR) 250 MG TABLET PO SCH ×2 (00:23→20:24)
[2019-05-12] MEDS: *HR* HYDROcodone/Acet 5/325 mg TABLET PO PRN ×2 (01:27→12:51)
[2019-05-12 05:02] LABS: Basophils # 0.2 K/mcL (0.0-0.2); Basophils % 0.8 %; Eosinophils # 0.6 K/mcL (0.0-0.6); Eosinophils % 3.4 %; Hematocrit 29.1 % (35.3-44.9); Hemoglobin 8.6 g/dL (11.5-15.4); Lymphocytes # 4.3 K/mcL (0.6-4.6); Lymphocytes % 23.1 %; Mean Corpuscular HGB Conc 29.6 g/dL (31.6-35.5); Mean Corpuscular Hemoglobin 27.3 pg (28.0-33.3); Mean Corpuscular Volume 92.4 fL (83.0-100.0); Mean Platelet Volume 10.4 fL (9.4-12.4); Monocytes # 2.3 K/mcL (0.0-1.3); Monocytes % 12.3 %; Neutrophils # 11.1 K/mcL (1.6-8.9); Platelet Count 379 K/mcL (140-400); Red Blood Count 3.15 M/mcL (3.82-4.97); Red Cell Distribution Width 16.8 % (11.5-14.5); Segmented Neutrophils % 59.4 %; White Blood Count 18.6 K/mcL (4.3-11.1)
[2019-05-12 05:17] LABS: Calcium 8.5 mg/dL (8.6-10.3); Potassium 4.6 mEq/L (3.5-5.1)
[2019-05-12] MEDS: *HR* Heparin 5,000 UNIT/ML VIAL SQ SCH ×2 (06:17→19:25)
[2019-05-12] MEDS: Insulin LISPRO 300 UNITS/3 ML VIAL SQ SCH ×3 (09:07→17:27)
[2019-05-12] MEDS: Divalproex Sodium 125 MG CAPSULE PO SCH ×2 (09:49→12:51)
[2019-05-12] MEDS: *HR* Digoxin 0.125 MG TABLET PO SCH (09:49)
[2019-05-12] MEDS: Nicotine 14 MG PATCH.TD24 TD SCH (09:49)
[2019-05-12] MEDS: Aspirin Enteric Coated 81 MG Tablet PO SCH (09:49)
[2019-05-12] MEDS: Budesonide/Formoterol 160/4.5 1 PUFF INH IH SCH ×2 (10:14→20:08)
[2019-05-13 05:53] LABS: Calcium 9.1 mg/dL (8.6-10.3); Potassium 4.8 mEq/L (3.5-5.1)
[2019-05-13] MEDS: *HR* Metoprolol 5 MG/5 ML VIAL IVP PRN (06:27)
[2019-05-13] MEDS: *HR* Heparin 5,000 UNIT/ML VIAL SQ SCH ×2 (06:27→16:54)
[2019-05-13] MEDS: Budesonide/Formoterol 160/4.5 1 PUFF INH IH SCH ×2 (07:59→20:41)
[2019-05-13] MEDS: Gabapentin 100 MG CAPSULE PO SCH ×3 (08:06→20:14)
[2019-05-13] MEDS: Aspirin Enteric Coated 81 MG Tablet PO SCH (08:06)
[2019-05-13] MEDS: Nicotine 14 MG PATCH.TD24 TD SCH (08:06)
[2019-05-13] MEDS: *HR* Digoxin 0.125 MG TABLET PO SCH (08:07)
[2019-05-13] MEDS: ALPRAZOLAM PO SCH ×3 (08:07→20:14)
[2019-05-13] MEDS: Insulin LISPRO 300 UNITS/3 ML VIAL SQ SCH ×3 (08:09→16:54)
[2019-05-13] MEDS: Divalproex Sodium 125 MG CAPSULE PO SCH ×2 (08:10→11:07)
[2019-05-13] MEDS: *HR* HYDROcodone/Acet 5/325 mg TABLET PO PRN (14:25)
[2019-05-13 19:42] LABS: Folate 6.4 ng/mL (3.0-16.0)
[2019-05-13] MEDS: Divalproex (12 HR) 250 MG TABLET PO SCH (20:14)
[2019-05-13] MEDS: Mirtazapine 15 MG TABLET PO SCH (20:14)
[2019-05-14] MEDS: *HR* Heparin 5,000 UNIT/ML VIAL SQ SCH (05:24)
[2019-05-14] MEDS: ALPRAZOLAM PO SCH (07:34)
[2019-05-14] MEDS: Divalproex Sodium 125 MG CAPSULE PO SCH (07:35)
[2019-05-14] MEDS: *HR* Digoxin 0.125 MG TABLET PO SCH (07:35)
[2019-05-14] MEDS: Aspirin Enteric Coated 81 MG Tablet PO SCH (07:35)
[2019-05-14] MEDS: Gabapentin 100 MG CAPSULE PO SCH (07:35)
[2019-05-14] MEDS: Nicotine 14 MG PATCH.TD24 TD SCH (07:35)
[2019-05-14 07:41] VITALS: BP 136/69
[2019-05-14] MEDS: Insulin LISPRO 300 UNITS/3 ML VIAL SQ SCH (07:46)
[2019-05-14] MEDS: Budesonide/Formoterol 160/4.5 1 PUFF INH IH SCH (10:38)
[2019-05-14 11:10] LABS: Basophils # 0.2 K/mcL (0.0-0.2); Basophils % 0.8 %; Eosinophils # 0.2 K/mcL (0.0-0.6); Eosinophils % 0.8 %; Hematocrit 31.8 % (35.3-44.9); Hemoglobin 9.7 g/dL (11.5-15.4); Immature Granulocytes % 0.7 % (0-4); Lymphocytes % 14.5 %; Mean Corpuscular HGB Conc 30.5 g/dL (31.6-35.5); Mean Corpuscular Hemoglobin 26.7 pg (28.0-33.3); Mean Corpuscular Volume 87.6 fL (83.0-100.0); Mean Platelet Volume 11.2 fL (9.4-12.4); Monocytes # 1.8 K/mcL (0.0-1.3); Monocytes % 8.6 %; Neutrophils # 15.6 K/mcL (1.6-8.9); Platelet Count 423 K/mcL (140-400); Red Blood Count 3.63 M/mcL (3.82-4.97); Red Cell Distribution Width 16.5 % (11.5-14.5); Segmented Neutrophils % 74.6 %; White Blood Count 20.9 K/mcL (4.3-11.1)
[2019-05-17 01:02] LABS: Alpha 2 Globulin (PEP) 1.17 g/dL (0.48-1.05)
[2019-05-17 07:57] LABS: IFE Reflexed IFE Done; Immunoglobulin A 260 mg/dL (68-408); Immunoglobulin G 1150 mg/dL (768-1632); Immunoglobulin M 235 mg/dL (35-263)
[2019-05-19 09:54] LABS: BCR-ABL1 Specimen Source NOT SPECIFIED
== END 2019-05-14 10:40 | disposition home or self-care (01) | DRG 342 ==
LOC: 3NENU 14:27 → EMEROOARM 14:27 → SUATTDRO 17:53 → 3NENU 18:04 → 2NENU 05-06 14:59
PROVIDERS: ADMIT Internal Medicine; ATTEND Internal Medicine